=== PATIENT | male | born 1950 | race Caucasian/White ===

== ENCOUNTER → 2017-11-11 | Outpatient (CLI) | payer MEDICARE ==
[~2017-11-11] MED LIST: ASPI-1471 PO; AZIT500T45 PO; CETI10CA8 PO; CHOL200022 PO; CIALIS; EPIN0.3P15 IM; FLUT16SP19 NS; HYDR-4309 PO; HYDR12.556 PO; IBU600 PO; LEVO-85 PO; LORA-802 PO; LUTE20CA11 PO; MET60GMPT TOP; METO25TA23 PO; METO25TA93 PO; MONT10TA PO; MULT1TAB64 PO; PER PO; ROSU20TA23 PO; TADA20TA33 PO
== END ==
LOC: AUD 13:00
PROVIDERS: ATTEND Otolaryngology
DX: H69.80 Other specified disorders of Eustachian tube, unspecified ear (principal)
CPT/HCPCS: 92557; 92570

== ENCOUNTER → 2017-11-30 | Outpatient (CLI) | payer MEDICARE ==
[~2017-11-30] MED LIST changes: +OFLO10DR3 EACH EAR; +SERT-184 PO; +SERT25TA90 PO
== END ==
LOC: AUD 15:15
PROVIDERS: ATTEND Otolaryngology
DX: H69.83 Other specified disorders of Eustachian tube, bilateral (principal); Z96.22 Myringotomy tube(s) status
CPT/HCPCS: 92567

== ENCOUNTER → 2017-12-02 | Outpatient (CLI) | payer MEDICARE ==
[~2017-12-02] MED LIST changes: -SERT-184 PO
== END ==
LOC: AUD 15:54
PROVIDERS: ATTEND Otolaryngology
DX: H69.83 Other specified disorders of Eustachian tube, bilateral (principal); Z96.22 Myringotomy tube(s) status
CPT/HCPCS: 92553; 92567

== ENCOUNTER 2018-04-28 15:29 | Emergency (ER) | payer MEDICARE ==
[~2018-04-28 15:29] MED LIST changes: +MOME220A3 INH; +SERT-184 PO; +[UNRECOGNIZED DRUG - CODE] IH; +[UNRECOGNIZED DRUG - CODE] MC
--- NOTE | 2018-04-28 15:43 | ER Report ---
History and Physical Time Seen By MD: 15:43 Hx. of Stated Complaint: SOB WITH WHEEZING HPI/ROS Chief Concern: shortness of breath History of Present Illnesses: 67-year-old male patient presents to emergency room with complaint of shortness of breath. Patient states that he started having shortness of breath last night. 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 He became concerned when he was having a difficult time catching his breath after climbing stairs. Patient denies any fevers, chills, nausea, vomiting or diarrhea. Patient states that he has noted that he has more difficulty with his sleep apnea after he spent a good portion of the day outside. He states he is seeing Dr. Pinon for evaluation of allergies. He was started on Asmanex which she states has not had any improvement. Constitutional: Denies recent illness, malaise, chills, fever. HEENT: Denies headache. No sinus congestion. No sore throat. Cardiovascular. Denies chest pain, palpitations, or diaphoresis. Respiratory: Denies cough, shortness of breath, or wheezing. Gastrointestinal System: Denies nausea, vomiting, hematochezia, or black stools. Genitourinary: Reports lower back pain, hematuria, painful voiding, or trouble with emptying bladder. Musculoskeletal: Denies muscular pain, no joint pain. Allergies: Coded Allergies: Penicillins (Verified Allergy, Intermediate, EYE SWELLING, 04/28/18) Uncoded Allergies: BARRY GRASS (Allergy, Intermediate, 04/28/18) Home Meds Active Scripts Ipratropium/Albuterol Sulfate (COMBIVENT RESPIMAT INHAL SPRAY) 4 Gm Aer.w.adap, 1 EACH IH QID Y for SHORTNESS OF BREATH, #1 INHALER Prov:SAMSON BLANKENSHIP ART LIBRARIAN 04/28/18 Mometasone Furoate (ASMANEX) 220 Mcg Inha, 220 MCG INH BID, #1 INHALER 2 Refills Prov:TERESA EUBANKS MD 03/09/18 Sertraline Hcl (SERTRALINE HCL) 50 Mg Tablet, 1 TAB PO QDAY, #90 TAB 3 Refills Prov:TERESA EUBANKS MD 12/08/17 Rosuvastatin Calcium (CRESTOR) 20 Mg Tablet, 1 TAB PO QDAY, #90 TAB 4 Refills Prov:TERESA EUBANKS MD 10/29/17 Tadalafil (CIALIS) 20 Mg Tablet, 0.5 TAB PO DAILY Y for as directed, #30 TAB 1 Refill Take 1-24 hours prior to anticipated sexual activity Prov:FABIÁN CURTIS APRN ART LIBRARIAN-C 09/22/17 Metoprolol Succinate (METOPROLOL SUCCINATE) 25 Mg Tab.er.24h, 1 TAB PO QDAY, # 90 TAB 3 Refills Prov:TERESA EUBANKS MD 08/06/17 Epinephrine (EPIPEN 2-IFEANYI) 0.3 Mg/0.3 Ml Pen.injctr, 0.3 MG IM PRN, #1 BOX Prov:INNA PINON JR, MD 07/31/17 Montelukast Sodium (SINGULAIR) 10 Mg Tablet, 1 TAB PO QDAY, #0 TAB Prov:TERESA EUBANKS MD 08/08/16 Reported Medications Aspirin (ASPIR 81) 81 Mg Tablet.dr, 81 MG PO QDAY, TAB 05/22/16 Cholecalciferol (Vitamin D3) (Vitamin D-3) 2,000 Unit Tablet, 1 TAB PO DAILY 02/12/16 Multivitamin (MULTI VITAMIN DAILY) 1 Each Tablet, 1 TAB PO DAILY 02/12/16 Discontinued Reported Medications Hydrocodone Bit/Acetaminophen (NORCO 5-325 TABLET) 1 Each Tablet, 1-2 EACH PO Q4H Y for PAIN, #30 TAB 07/20/17 Lutein (LUTEIN) 20 Mg Capsule, 20 MG PO DAILY, CAPSULE 02/12/16 Discontinued Scripts Peak Flow Meter (ASTHMA CHECK) 1 Each Each, EACH MC, #1 Prov:TERESA EUBANKS MD 03/31/18 Past Medical/Surgical History Patient has a past medical history of hyperlipidemia, sleep apnea, allergies, earaches, alcohol use. Patient has surgical history of tonsillectomy, nasal surgery, impacted wisdom teeth removed, total hip replacement, colonoscopy. Patient has a family medical history of colon cancer, Crohn's disease. Reviewed Nurses Notes: Yes Hx Smoking: No Smoking Status: Never Smoker Exposure to Second Hand Smoke?: No Hx Substance Use Disorder: No Hx Alcohol Use: Yes Constitutional Vital Sign - Last 24 Hours 04/28/18 04/28/18 04/28/18 04/28/18 15:32 15:35 15:44 15:59 Temp 98.8 Pulse 70 71 73 Resp 18 15 11 B/P (MAP) 150/90 (110) 150/90 Pulse Ox 91 93 92 O2 Delivery Room Air Room Air Room Air 04/28/18 04/28/18 04/28/18 04/28/18 16:00 16:14 16:29 16:30 Pulse 62 62 Resp 26 23 B/P (MAP) 136/75 (95) 132/90 (104) Pulse Ox 95 91 O2 Delivery Room Air Room Air 04/28/18 04/28/18 04/28/18 16:44 16:59 17:00 Pulse 70 60 Resp 15 21 B/P (MAP) 124/77 (93) Pulse Ox 91 91 O2 Delivery Room Air Room Air Physical Exam General Appearance: The patient is alert, has no immediate need for airway protection and no current signs of toxicity. Respiratory: Chest is non tender, lungs are clear to auscultation. Cardiac: regular rate and rhythm Gastrointestinal: Abdomen is soft and non tender, no masses, bowel sounds normal. Musculoskeletal: Neck: Neck is supple and non tender. Extremities have full range of motion and are non tender. Skin: No rashes or lesions. DIFFERENTIAL DIAGNOSIS: After history and physical exam differential diagnosis was considered for shortness of breath including but not limited to pulmonary infectious process, COPD, asthma, pulmonary embolus and congestive heart failure. Medical Decision Making Data Points Result Diagram: 04/28/18 1538 04/28/18 1538 Laboratory Hematology Test 04/28/18 15:38 Red Blood Count 5.20 M/uL (4.00-5.60) Mean Corpuscular Volume 92.9 fL (80.0-96.0) Mean Corpuscular Hemoglobin 32.6 pg (26.0-33.0) Mean Corpuscular Hemoglobin Concent 35.1 g/dL (32.0-36.0) Red Cell Distribution Width 13.3 % (11.5-14.5) Mean Platelet Volume 9.9 fL (7.2-11.1) Neutrophils (%) (Auto) 65.4 % (39.4-72.5) Lymphocytes (%) (Auto) 23.2 % (17.6-49.6) Monocytes (%) (Auto) 8.5 % (4.1-12.4) Eosinophils (%) (Auto) 2.3 % (0.4-6.7) Basophils (%) (Auto) 0.6 % (0.3-1.4) Nucleated RBC Relative Count (auto) 0.0 /100WBC Neutrophils # (Auto) 5.7 K/uL (2.0-7.4) Lymphocytes # (Auto) 2.0 K/uL (1.3-3.6) Monocytes # (Auto) 0.7 K/uL (0.3-1.0) Eosinophils # (Auto) 0.2 K/uL (0.0-0.5) Basophils # (Auto) 0.1 K/uL (0.0-0.1) Nucleated RBC Absolute Count (auto) 0.00 K/uL D-Dimer Quantitative (PE/DVT) 0.30 ug/ml (0-0.50) Sodium Level 142 mmol/L (137-145) Potassium Level 3.9 mmol/L (3.5-5.0) Chloride Level 102 mmol/L (98-107) Carbon Dioxide Level 27 mmol/L (22-30) Blood Urea Nitrogen 21 mg/dl (9-21) Creatinine 1.00 mg/dl (0.66-1.25) Glomerular Filtration Rate Calc > 60.0 Random Glucose 102 mg/dl (75-110) Calcium Level 9.7 mg/dl (8.4-10.2) Total Bilirubin 0.5 mg/dl (0.2-1.3) Aspartate Amino Transf (AST/SGOT) 40 U/L (0-35) Alanine Aminotransferase (ALT/SGPT) 36 U/L (0-56) Alkaline Phosphatase 75 U/L (0-126) Troponin I < 0.012 ng/ml Total Protein 8.0 g/dl (6.3-8.2) Albumin 4.9 g/dl (3.5-5.0) Chemistry Test 04/28/18 15:38 White Blood Count 8.7 k/uL (4.5-11.0) Red Blood Count 5.20 M/uL (4.00-5.60) Hemoglobin 17.0 g/dL (14.0-18.0) Hematocrit 48.3 % (42.0-52.0) Mean Corpuscular Volume 92.9 fL (80.0-96.0) Mean Corpuscular Hemoglobin 32.6 pg (26.0-33.0) Mean Corpuscular Hemoglobin Concent 35.1 g/dL (32.0-36.0) Red Cell Distribution Width 13.3 % (11.5-14.5) Platelet Count 214 K/uL (150-450) Mean Platelet Volume 9.9 fL (7.2-11.1) Neutrophils (%) (Auto) 65.4 % (39.4-72.5) Lymphocytes (%) (Auto) 23.2 % (17.6-49.6) Monocytes (%) (Auto) 8.5 % (4.1-12.4) Eosinophils (%) (Auto) 2.3 % (0.4-6.7) Basophils (%) (Auto) 0.6 % (0.3-1.4) Nucleated RBC Relative Count (auto) 0.0 /100WBC Neutrophils # (Auto) 5.7 K/uL (2.0-7.4) Lymphocytes # (Auto) 2.0 K/uL (1.3-3.6) Monocytes # (Auto) 0.7 K/uL (0.3-1.0) Eosinophils # (Auto) 0.2 K/uL (0.0-0.5) Basophils # (Auto) 0.1 K/uL (0.0-0.1) Nucleated RBC Absolute Count (auto) 0.00 K/uL D-Dimer Quantitative (PE/DVT) 0.30 ug/ml (0-0.50) Glomerular Filtration Rate Calc > 60.0 Calcium Level 9.7 mg/dl (8.4-10.2) Total Bilirubin 0.5 mg/dl (0.2-1.3) Aspartate Amino Transf (AST/SGOT) 40 U/L (0-35) Alanine Aminotransferase (ALT/SGPT) 36 U/L (0-56) Alkaline Phosphatase 75 U/L (0-126) Troponin I < 0.012 ng/ml Total Protein 8.0 g/dl (6.3-8.2) Albumin 4.9 g/dl (3.5-5.0) Coagulation Test 04/28/18 15:38 D-Dimer Quantitative (PE/DVT) 0.30 ug/ml EKG/Imaging EKG Interpretation 12 lead EKG: Rhythm: normal sinus rhythm with a ventricular rate of 67 bpm [place]: normal QRS: Incomplete right bundle branch block. ST segments: normal Imaging EXAMINATION: Chest radiographs 2 views HISTORY: Shortness of breath. COMPARISON: 03/26/2016. FINDINGS: PA and lateral views of the chest are submitted. Lines/tubes: None. Lungs/pleura: No focal consolidation or pleural effusion. Heart: Negative. Mediastinum: Atherosclerotic calcifications of the aorta. Bony structures/body wall: Negative. IMPRESSION: No radiographic evidence of acute cardiopulmonary disease. Report Dictated By: Kristel Reyes MD at 04/28/2018 4:39 PM Report E-Signed By: Kristel Reyes MD at 04/28/2018 4:40 PM ED Course/Re-evaluation ED Course Patient is admitted and examined, history and physical were obtained. Differential diagnoses were considered. On examination patient had clear lung sounds, heart was regular. A CBC, CMP, EKG, troponin, chest x-ray were done. Lab results were unremarkable, chest x-ray showed no acute cardiopulmonary processes. EKG showed a normal sinus rhythm with incomplete right bundle branch block. We will go ahead and start the patient on ipratropium and albuterol to see if that helps. Patient states he was hoping to get a rescue inhaler. We will go ahead and discharge patient home and have him follow-up with his primary care provider and Dr. Pinon as previously scheduled. Patient verbalized understanding and agreement with plan. Decision to Disposition Date: Apr 28, 2018 Decision to Disposition Time: 16:57 Depart Departure Latest Vital Signs Vital Signs Date Time Temp Pulse Resp B/P (MAP) Pulse Ox O2 Delivery O2 Flow Rate FiO2 04/28/18 17:00 124/77 (93) 04/28/18 16:59 60 21 91 Room Air 04/28/18 15:35 98.8 Impression: Primary Impression: Asthma Condition: Improved Disposition: HOME OR SELF-CARE Referrals: TERESA EUBANKS MD (PCP) New Scripts Ipratropium/Albuterol Sulfate (COMBIVENT RESPIMAT INHAL SPRAY) 4 Gm Aer.w.adap 1 EACH IH QID Y for SHORTNESS OF BREATH, #1 INHALER Prov: KRZYSZTOFSAMSON ART LIBRARIAN 04/28/18 Patient Instructions: Asthma (ED) Additional Instructions: Increase fluid intake. Get plenty of rest. Follow up with Dr. Pinon next week that is already scheduled. Return to the ER if condition worsens. Continue with current medications. We will try the inhaler and see if that doesn't help. Problem Qualifiers Primary Impression: Asthma Asthma severity: mild Asthma persistence: intermittent Asthma complication type: with acute exacerbation Qualified Codes: J45.21 - Mild intermittent asthma with (acute) exacerbation SAMSON BLANKENSHIP Apr 28, 2018 15:43
[2018-04-28 16:15] LABS: PLATELET COUNT, AUTOMATED 214 K/uL (150-450)
--- NOTE | 2018-04-28 16:20 | EKG ---
[facility]AC[facility] PATIENT NAME: CHARLES BAKER : [id number] MR: [id number] V: [id number] EXAM DATE: ORDERING PHYSICIAN: SAMSON BLANKENSHIP TECHNOLOGIST: NHAN Doan Reason : SOB Blood Pressure : / mmHG Vent. Rate : 067 BPM Atrial Rate : 067 BPM P-R Int : 178 ms QRS Dur : 096 ms QT Int : 396 ms P-R-T Axes : 058 -26 029 degrees QTc Int : 418 ms Normal sinus rhythm Incomplete right bundle branch block Borderline ECG When compared with ECG of 21-MAR-2016 11:07, Incomplete right bundle branch block is now present Referred By: Confirmed By:
--- NOTE | 2018-04-28 16:44 | RADIOLOGY IMAGING REPORT ---
FACILITY: [facility] [place] PATIENT NAME: Reyes Granado : 1950 MR: [id number] V: [id number] EXAM DATE: ORDERING PHYSICIAN: SAMSON BLANKENSHIP TECHNOLOGIST: Location: [facility] Patient: Reyes Granado : 1950 Visit/Account:[id number] Date of Sevice: 04/28/2018 EXAMINATION: Chest radiographs 2 views HISTORY: Shortness of breath. COMPARISON: 03/26/2016. FINDINGS: PA and lateral views of the chest are submitted. Lines/tubes: None. Lungs/pleura: No focal consolidation or pleural effusion. Heart: Negative. Mediastinum: Atherosclerotic calcifications of the aorta. Bony structures/body wall: Negative. IMPRESSION: No radiographic evidence of acute cardiopulmonary disease. Report Dictated By: Kristel Reyes MD at 04/28/2018 4:39 PM Report E-Signed By: Kristel Reyes MD at 04/28/2018 4:40 PM WSN:[email or web address]
[2018-04-28] MEDS ORDERED: IPRA4AER IH (16:53)
[2018-04-28 17:00] VITALS: BP 124/77
== END 2018-04-28 17:12 | disposition home or self-care (01) ==
LOC: ER 15:48
DX: J45.21 Mild intermittent asthma with (acute) exacerbation (principal)
CPT/HCPCS: 71046; 82040; 82247; 82310; 82374; 82435; 82565; 82947; 84075; 84132; 84155; 84295; 84450; 84460; 84484; 84520; 85025; 85379; 93005; 99284

== ENCOUNTER → 2018-06-04 | Outpatient (CLI) | payer MEDICARE ==
[~2018-06-04] MED LIST changes: +ALB18R INH; +BECL10.62 INH; +IPRA4AER IH
--- NOTE | 2018-06-04 15:40 | RT STRESS TEST REPORT ---
FACILITY[facility] PATIENT NAME: CHARLES BAKER : [id number] MR: [id number] V: [id number] EXAM DATE: ORDERING PHYSICIAN: INNA PINON TECHNOLOGIST: Alba [employer] Time: 2018-06-04 13:51:21 Total Exercise Time: 00:08:01 Test Indications: Asthma Exercise Medications: aspirin metropral Protocol: BRUCE2 Max HR: 153 BPM 101% of Pred: 151 BPM Max BP: 198/086 mmHG Max Work Load: 10.1 METS Patient exercised eight (8) minutes under Stanislav 2 Protocol. Test was stopped secondary to reaching 10 0% PMHR. He did not have any chest pain or significant dyspnea. No EKG changes were noted. No dysrhythmias were recorded. BP response was somewh at exaggerated. Recovery was uneventful. IMPRESSION: Low Probability of Ischemia. Confirmed by MARINA LADD ([id number]) on 06/04/2018 3:40:49 PM Referred By: Overread By: MARINA LADD
== END ==
LOC: RESP 04:10
PROVIDERS: ATTEND Otolaryngology
DX: J98.4 Other disorders of lung (principal)
CPT/HCPCS: 93017

== ENCOUNTER → 2018-07-12 | Outpatient (CLI) | payer MEDICARE ==
[~2018-07-12] MED LIST changes: -CHOL200022 PO; +CHOL200085 PO; +OFLO5DRO45 OT
--- NOTE | 2018-07-12 16:19 | RADIOLOGY IMAGING REPORT ---
FACILITY: [facility] PATIENT NAME: Reyes Granado : 1950 MR: [id number] V: [id number] EXAM DATE: ORDERING PHYSICIAN: JEREMY STORM TECHNOLOGIST: Location: [facility] [place] Patient: Reyes Granado : 1950 Visit/Account:[id number] Date of Sevice: 07/12/2018 CHEST W/O CONTRAST History: Shortness of breath x4 months, worsening fatigue TECHNIQUE: Contiguous axial images were performed through the chest to the level of the adrenal gla nds. No IV contrast was administered. Coronal and sagittal reformatting was also performed. Dose Lowe ring Technique One of the following dose optimization techniques was utilized in the performance of this exam: Autom ated exposure control; adjustment of the mA and/or kV according to the patient's size; or use of an i terative reconstruction technique. Specific details can be referenced in the facility's radiology C T exam operational policy. COMPARISON STUDIES: CT of the chest April 09, 2016. Lungs / Pleura: negative. Mediastinum/nodes: negative. Heart and vessels: There are mild atherosclerotic calcifications of the aortic arch and branch vesse ls Musculoskeletal / Body wall: There are at least moderate spondylotic changes of the thoracic spine. This is most prominent at T9 Upper abdomen: Along the anterior aspect right lobe is a 2.7 x 1.8 cm cyst that was not present on the prior study. Incompletely imaged is a 1.1 cm cystic region in the mid right kidney which appeared to been present previously IMPRESSION: No evidence of pulmonary infiltrates, pleural effusions, interstitial lung disease or emphysema Hepatic and right renal cyst At least moderate spondylotic changes of the thoracic spine, most prominent at T9 Report Dictated By: Florencia Bryan MD at 07/12/2018 4:04 PM Report E-Signed By: Florencia Bryan MD at 07/12/2018 4:14 PM WSN:[email or web address]
== END ==
LOC: CT 01:13
PROVIDERS: ATTEND Family Medicine
DX: K76.89 Other specified diseases of liver (principal); N28.1 Cyst of kidney, acquired; M47.894 Other spondylosis, thoracic region; I70.0 Atherosclerosis of aorta
CPT/HCPCS: 71250

== ENCOUNTER → 2018-07-19 | Outpatient (CLI) | payer MEDICARE ==
[~2018-07-19] MED LIST changes: -HYDR-4309 PO; +HYDR-653 PO
--- NOTE | 2018-07-21 18:52 | RT HOLTER TEST ---
FACILITY: [facility] PATIENT NAME: CHARLES BAKER : [id number] MR: [id number] V: [id number] EXAM DATE: ORDERING PHYSICIAN: JEREMY STORM TECHNOLOGIST: Ragini Chávez-up date: 2018-07-19 13:40:00 Duration: 47:59:00 Test Indications: DYSPNEA, SOB Medications: Metroprolol Zoloft Asprin Crestor Singular [id number] QRS complexes 11 Ventricular ectopics which represent <1 % of total QRS comp. 120 Supraventricular ectopics which represent <1 % of total QRS comp. * Paced QRS complexes which represent % of total QRS comp. VENTRICULAR ECTOPY 11 Isolated 0 Bigeminal Cycles 0 Couplets 0 Runs 0 Beats in Runs * Beats LONGEST at * BPM at :: -- * Beats FASTEST at * BPM at :: -- SUPRAVENTRICULAR ECTOPY 73 Isolated 22 Couplets 1 Runs 3 Beats in Runs 3 Beats LONGEST at 111 BPM at 22:13:42 2018-07-19 3 Beats FASTEST at 111 BPM at 22:13:42 2018-07-19 HEART RATES 46 MIN at 23:30:14 2018-07-19 65 AVG 110 MAX at 10:07:01 2018-07-21 LONGEST RR 1.488 secs at 00:29:17 2018-07-21 S-T LEVELS Channel 1 -12.800 mm MIN at 13:40:00 2018-07-19 -12.800 mm MAX at 13:40:00 2018-07-19 Channel 2 -12.800 mm MIN at 13:40:00 2018-07-19 -12.800 mm MAX at 13:40:00 2018-07-19 The patient had no arrhythmias note during symptom triggered events. The patient was predominantly i n a sinus rhythm with rare ventricular ectopy and occasional supraventricular ectopy (SVE). There was one 3 beat run of SVE at 111 beats per donna te. Confirmed by SULMA CABRERA ([id number]) on 07/21/2018 6:51:50 PM Referred By: Overread By: SULMA CABRERA
== END ==
LOC: RESP 00:38
PROVIDERS: ATTEND Family Medicine
DX: R06.02 Shortness of breath (principal)
CPT/HCPCS: 93225; 93226

== ENCOUNTER → 2018-08-31 | Outpatient (CLI) | payer MEDICARE | LOC: RAD 00:44 | PROVIDERS: ATTEND Internal Medicine Cardiovascular Disease | DX: I20.8 Other forms of angina pectoris (principal); R06.09 Other forms of dyspnea | CPT/HCPCS: 93017; 93350 ==

== ENCOUNTER → 2018-10-08 | Outpatient (CLI) | payer MEDICARE ==
[~2018-10-08] MED LIST changes: +CHOL200022 PO; -CHOL200085 PO
--- NOTE | 2018-10-08 14:04 | RADIOLOGY IMAGING REPORT ---
FACILITY: [facility] PATIENT NAME: Reyes Granado : 1950 MR: [id number] V: [id number] EXAM DATE: ORDERING PHYSICIAN: AMEENA HULL TECHNOLOGIST: Location: [facility] [place] Patient: Reyes Granado : 1950 Visit/Account:[id number] Date of Sevice: 10/08/2018 EXAMINATION: CT Temporal Bone without IV contrast HISTORY: Left ear pain. TECHNIQUE: Non-IV enhanced high-resolution sub-millimeter axial scans were obtained through both tem poral bones, reformatted in the coronal and sagittal plane. Exam is optimized for bone detail and is not intended for soft tissue evaluation of the posterior fossa. The rest of the brain was not imaged. One of the following dose optimization techniques was utilized in the performance of this exam: Autom ated exposure control; adjustment of the mA and/or kV according to the patient's size; or use of an i terative reconstruction technique. Specific details can be referenced in the facility's radiology C T exam operational policy. COMPARISON: None available. FINDINGS: RIGHT TEMPORAL BONE: Mastoid segment / EAC: Negative. Tympanic Membrane / Middle ear: Tympanostomy tube. Otherwise negative. Inner ear: Cochlea / vestibule / semicircular canals: Negative. IAC: Negative. Vestibular / cochlear aqueducts: Negative. Petrous apex: Negative. ICA / jugular bulb: Negative. Visualized skull base: Negative. LEFT TEMPORAL BONE: Mastoid segment / EAC: Negative. Tympanic Membrane / Middle ear: Tympanostomy tube. Otherwise negative. Inner ear: Cochlea / vestibule / semicircular canals: Negative. IAC: Negative. Vestibular / cochlear aqueducts: Negative. Petrous apex: Negative. ICA / jugular bulb: Negative. Visualized skull base: Negative. OTHER: Mild mucosal thickening in the ethmoid air cells. Moderate mucosal thickening in the left max illary sinus. Leftward nasal septal deviation. Right temporomandibular joint arthritis. IMPRESSION: 1. Bilateral tympanostomy tubes. Otherwise unremarkable temporal bone CT. 2. Mild mucosal thickening in the ethmoid air cells. Moderate mucosal thickening in the left maxill norman sinus. Leftward nasal septal deviation. 3. Right temporomandibular joint arthritis. Report Dictated By: Garry Tejada MD at 10/08/2018 1:49 PM Report E-Signed By: Garry Tejada MD at 10/08/2018 2:00 PM WSN:[id number]
== END ==
LOC: CT 00:20
PROVIDERS: ATTEND Otolaryngology
DX: J34.2 Deviated nasal septum (principal); M26.601 Right temporomandibular joint disorder, unspecified; G47.33 Obstructive sleep apnea (adult) (pediatric); H92.02 Otalgia, left ear; Z96.22 Myringotomy tube(s) status
CPT/HCPCS: 70480